=== PATIENT | male | born 1960 | race Caucasian/White ===

== ENCOUNTER 2022-04-14 15:06 | Inpatient (IN) | payer OTHER ==
[~2022-04-14] VITALS: Ht 180.3 cm; Wt 92.1 kg
[2022-04-14] MEDS ORDERED: ACETAMINOPHEN 500 MG TABLET PO ONE (15:30)
[2022-04-14 15:49] LABS: BASOPHILS % (AUTO) 0.2 % (0.0-5.0); EOSINOPHILS % (AUTO) 0.5 % (0.0-8.0); HEMATOCRIT 39.1 % (42-54); LYMPHOCYTES % (AUTO) 3.6 % (21.0-51.0); MEAN CORPUSCULAR HEMOGLOBIN 26.9 pg (27.0-33.0); MEAN CORPUSCULAR VOLUME 81.6 fL (79-99); MONOCYTES % (AUTO) 7.1 % (3.0-13.0); NEUTROPHILS % (AUTO) 87.1 % (40.0-77.0); PLATELET COUNT (AUTO) 402 K/uL (130-400); RED BLOOD CELL COUNT(AUTO) 4.79 MIL/uL (4.50-6.20); RED CELL DISTRIBUTION WIDTH 13.8 % (11.0-15.5); WHITE BLOOD COUNT (AUTO) 22.7 K/uL (4.8-10.8)
[2022-04-14 15:56] LABS: APPEARANCE,URINE Clear (CLEAR); BILIRUBIN,URINE Negative (NEGATIVE); COLOR,URINE Yellow (YELLOW); GLUCOSE, URINE (UA) >=1000 mg/dL (NEGATIVE); KETONES,URINE >=160 mg/dL (NEGATIVE); LEUKOCYTE ESTERASE ,URINE Negative (NEGATIVE); NITRATE,URINE Negative (NEGATIVE); OCCULT BLOOD,URINE Small (NEGATIVE); PROTEIN,URINE POS 2+ mg/dL (NEGATIVE); UROBILINOGEN,URINE 0.2 mg/dL (0.2-1.0)
[2022-04-14] MEDS ORDERED: ONDANSETRON 4MG INJ IVP ONE (16:00)
[2022-04-14] MEDS ORDERED: MORPHINE 4 MG SYG IVP ONE (16:00)
[2022-04-14] MEDS ORDERED: ZOSYN 3.375GM +NS 50ML IV SCH (16:00)
[2022-04-14 16:10] LABS: ALBUMIN 2.5 g/dL (3.5-5.0); BILIRUBIN,TOTAL 0.6 mg/dL (0.2-1.0); CREATININE 1.2 mg/dL (0.5-1.5); POTASSIUM 4.9 mmol/L (3.5-5.1); TOTAL PROTEIN, SERUM 8.3 g/dL (6.0-8.3)
[2022-04-14] MEDS ORDERED: 0.9%NACL 1000ML 1,000 ML IV ONE ×2 (16:30→18:00)
[2022-04-14 16:48] LABS: ABG BASE EXCESS -5.4 mmol/L (-2.0-3.0); ABG HCO3 18.3 mmol/L (21.0-28.0); ABG OXYGEN SATURATION 94.4 % (95.0-99.0); ABG PCO2 31 mmHg (35-48)
[2022-04-14 16:55] LABS: BACTERIA,URINE None Seen /HPF (None Seen); RBC,URINE None Seen /HPF (0-1); SQUAMOUS EPITHELIAL CELL,UR None Seen /HPF (0-2); WBC,URINE 0-1 /HPF (0-1)
[2022-04-14] MEDS ORDERED: CLINDAMYCIN IVPB 900MG/50ML 50 ML IV SCH (17:30)
[2022-04-14] MEDS: METOPROLOL TARTRATE 25 MG TAB PO SCH ×2 (18:00→21:00)
[2022-04-14] MEDS ORDERED: VANCOMYCIN PROTOCOL PER PHARMACY IV PRN (18:00)
[2022-04-14] MEDS ORDERED: ACETAMINOPHEN 325 MG TAB PO PRN (18:00)
[2022-04-14] MEDS ORDERED: LACTULOSE 20 GM/30 ML UDCUP PO PRN (18:00)
[2022-04-14] MEDS ORDERED: ONDANSETRON 4MG INJ IV PRN (18:00)
[2022-04-14] MEDS ORDERED: INSULIN HUMULIN R 100 UNIT/ML 3ML IV ONE (18:00)
[2022-04-14 18:26] LABS: RETICULOCYTE % (AUTO) 1.12 % (0.42-2.23)
[2022-04-14] MEDS ORDERED: LABETALOL 20MG VIAL IV PRN (18:30)
[2022-04-14] MEDS: BUDESONIDE 0.5 MG/2 ML INH IH SCH (18:37)
[2022-04-14] MEDS: IPRATROPIUM/ALBUTEROL SULFATE 3 ML SOLUTION IH SCH ×2 (18:37→23:51)
[2022-04-14 18:41] LABS: PROTEIN,URINE RANDOM 123.3 mg/dL (0-11.9)
[2022-04-14 18:43] LABS: HEMOGLOBIN A1C 11.5 % (4.0-6.0)
[2022-04-14] MEDS ORDERED: VANCOMYCIN 2GM/500 ML BAG 500 ML IV ONE (19:00)
[2022-04-14 19:09] LABS: MAGNESIUM 1.7 mg/dL (1.80-2.40); PHOSPHORUS 3.6 mg/dL (2.5-4.9); THYROID STIMULATING HORMONE 1.69 uIU/mL (0.36-3.74)
[2022-04-14] MEDS: 0.9%NACL 1000ML 1,000 ML IV SCH (19:20)
[2022-04-14] MEDS: MEROPENEM 500 MG VIAL IV SCH (19:25)
[2022-04-14] MEDS ORDERED: FENTANYL 2500MCG+NS 250ML 250 ML IV ONE (20:18)
[2022-04-14] MEDS: NIFEDIPINE 10 MG CAP PO SCH (21:00)
[2022-04-14] MEDS: FAMOTIDINE 20MG VIAL IV SCH (22:22)
[2022-04-14] MEDS: INSULIN HUMULIN R 100 UNIT/ML 3ML SQ SCH (22:22)
[2022-04-14] MEDS: INSULIN GLARGINE 100 UNITS/ML 10 ML VIAL SQ SCH (22:23)
[2022-04-15] VITALS (25 sets, daily range): BP systolic 94–140; BP diastolic 53–76
[2022-04-15] MEDS ORDERED: MORPHINE 4 MG SYG IVP ONE (01:30)
[2022-04-15] MEDS: MEROPENEM 500 MG VIAL IV SCH ×2 (01:37→09:27)
[2022-04-15] MEDS: IPRATROPIUM/ALBUTEROL SULFATE 3 ML SOLUTION IH SCH ×3 (01:47→10:27)
[2022-04-15] MEDS: 0.9%NACL 1000ML 1,000 ML IV SCH ×3 (04:00→15:35)
[2022-04-15] MEDS: ACETAMINOPHEN 325 MG TAB PO PRN (04:44)
[2022-04-15] MEDS: VANCOMYCIN 1G/250ML KIT 250 ML IV SCH ×2 (06:04→16:55)
[2022-04-15] MEDS: INSULIN HUMULIN R 100 UNIT/ML 3ML SQ SCH ×5 (06:05→21:55)
[2022-04-15] MEDS: BUDESONIDE 0.5 MG/2 ML INH IH SCH ×2 (06:18→18:06)
[2022-04-15] MEDS: NIFEDIPINE 10 MG CAP PO SCH ×3 (08:47→21:55)
[2022-04-15] MEDS: METOPROLOL TARTRATE 25 MG TAB PO SCH ×2 (08:47→21:55)
[2022-04-15] MEDS: FAMOTIDINE 20MG VIAL IV SCH ×2 (08:47→21:55)
[2022-04-15] MEDS: ENOXAPARIN SODIUM 40 MG/0.4 ML SYRINGE SQ SCH (08:48)
[2022-04-15] MEDS ORDERED: INSULIN GLARGINE 100 UNITS/ML 10 ML VIAL SQ SCH (09:00)
[2022-04-15] MEDS: HYDROMORPHONE 0.5 MG SYG (0.5MG/0.5ML) IVP PRN ×3 (09:27→21:00)
[2022-04-15 09:30] LABS: BASOPHILS % (AUTO) 0.3 % (0.0-5.0); EOSINOPHILS % (AUTO) 0.1 % (0.0-8.0); HEMATOCRIT 37.5 % (42-54); LYMPHOCYTES % (AUTO) 3.8 % (21.0-51.0); MEAN CORPUSCULAR HEMOGLOBIN 27.5 pg (27.0-33.0); MEAN CORPUSCULAR HGB CONC 33.9 g/dL (32.0-36.0); MEAN CORPUSCULAR VOLUME 81.3 fL (79-99); MONOCYTES % (AUTO) 5.8 % (3.0-13.0); NEUTROPHILS % (AUTO) 89.2 % (40.0-77.0); PLATELET COUNT (AUTO) 348 K/uL (130-400); RED BLOOD CELL COUNT(AUTO) 4.61 MIL/uL (4.50-6.20); WHITE BLOOD COUNT (AUTO) 19.7 K/uL (4.8-10.8)
[2022-04-15 09:45] LABS: CARBON DIOXIDE 25 mmol/L (21-32); CHLORIDE 94 mmol/L (101-111); CREATININE 1.1 mg/dL (0.5-1.5); GLOMERULAR FILTR. RATE CALC 72 mL/min (>60); GLUCOSE,RANDOM 332 mg/dL (70-105); POTASSIUM 3.9 mmol/L (3.5-5.1); SODIUM SERUM 129 mmol/L (136-145); UREA NITROGEN, BLOOD 15 mg/dL (7-18)
[2022-04-15 09:50] LABS: ALANINE AMINOTRANSFERASE 14 U/L (12-78); ASPARTATE AMINOTRANSFERASE 11 U/L (10-37); BILIRUBIN,TOTAL 0.3 mg/dL (0.2-1.0); PHOSPHORUS 2.4 mg/dL (2.5-4.9); TOTAL PROTEIN, SERUM 7.1 g/dL (6.0-8.3)
[2022-04-15 09:55] LABS: B-TYPE NATRIURETIC PEPTIDE 78 pg/mL (0-100)
[2022-04-15 10:01] LABS: AMMONIA < 3 umol/L (11-32)
[2022-04-15 10:41] LABS: ERYTHROCYTE SEDIMENTATION RATE 123 MM/HR (0-20)
[2022-04-15] MEDS: MAGNESIUM 2GM PREMIX 50ML 50 ML IV SCH (11:43)
[2022-04-15] MEDS ORDERED: BUPIVACAINE/PF 0.25% 30ML VIAL IJ ONE (12:46)
[2022-04-15] MEDS ORDERED: LIDOCAINE HCL 1% MDV 50ML VIAL ONE (12:46)
[2022-04-15] MEDS ORDERED: MIDAZOLAM HCL 1 MG/ML 2ML VIAL ONE (13:13)
[2022-04-15] MEDS ORDERED: PROPOFOL 10 MG/ML 20ML VIAL IV ONE (13:13)
[2022-04-15] MEDS ORDERED: FENTANYL CITRATE PF 50 MCG/1 ML 2ML VIAL ONE (13:13)
[2022-04-15] MEDS ORDERED: EPHEDRINE SULFATE 50 MG/ML AMPULE ONE (13:22)
[2022-04-15] MEDS: NEUTRA-PHOS PACKET 1 EACH PO SCH ×2 (14:00→21:57)
[2022-04-15 15:34] LABS: CREATININE 1.1 mg/dL (0.5-1.5); MAGNESIUM 2.3 mg/dL (1.80-2.40); PHOSPHORUS 2.9 mg/dL (2.5-4.9)
[2022-04-15] MEDS: CEFEPIME HCL 1 GM VIAL IVP SCH ×2 (15:34→22:12)
[2022-04-15] MEDS: CLINDAMYCIN IVPB 600MG/50ML 50 ML IV SCH ×2 (15:34→22:12)
[2022-04-15] MEDS: IPRATROPIUM/ALBUTEROL SULFATE 3 ML SOLUTION IH PRN (18:06)
[2022-04-15 21:05] LABS: CREATININE 1.2 mg/dL (0.5-1.5); MAGNESIUM 2.2 mg/dL (1.80-2.40); PHOSPHORUS 2.3 mg/dL (2.5-4.9); POTASSIUM 3.9 mmol/L (3.5-5.1)
[2022-04-15] MEDS: INSULIN GLARGINE 100 UNITS/ML 10 ML VIAL SQ SCH (21:56)
[2022-04-16 00:21] VITALS: BP 108/62
[2022-04-16] MEDS: 0.9%NACL 1000ML 1,000 ML IV SCH ×3 (01:06→20:44)
[2022-04-16 03:21] VITALS: BP 117/65
[2022-04-16] MEDS: INSULIN HUMULIN R 100 UNIT/ML 3ML SQ SCH ×6 (05:00→21:36)
[2022-04-16 05:38] LABS: BASOPHILS % (AUTO) 0.2 % (0.0-5.0); EOSINOPHILS % (AUTO) 0.1 % (0.0-8.0); HEMATOCRIT 31.7 % (42-54); LYMPHOCYTES % (AUTO) 7.7 % (21.0-51.0); MEAN CORPUSCULAR HGB CONC 32.8 g/dL (32.0-36.0); MEAN CORPUSCULAR VOLUME 82.3 fL (79-99); MONOCYTES % (AUTO) 6.6 % (3.0-13.0); NEUTROPHILS % (AUTO) 84.3 % (40.0-77.0); PLATELET COUNT (AUTO) 295 K/uL (130-400); RED BLOOD CELL COUNT(AUTO) 3.85 MIL/uL (4.50-6.20); RED CELL DISTRIBUTION WIDTH 14.3 % (11.0-15.5); WHITE BLOOD COUNT (AUTO) 17.8 K/uL (4.8-10.8)
[2022-04-16 06:14] LABS: CREATININE 1.1 mg/dL (0.5-1.5)
[2022-04-16 06:21] LABS: POTASSIUM 3.6 mmol/L (3.5-5.1)
[2022-04-16] MEDS ORDERED: 0.9% NACL 250ML 250 ML ONE (06:25)
[2022-04-16 06:41] LABS: ERYTHROCYTE SEDIMENTATION RATE 145 MM/HR (0-20)
[2022-04-16] MEDS: VANCOMYCIN 1G/250ML KIT 250 ML IV SCH ×2 (06:45→17:09)
[2022-04-16] MEDS: CEFEPIME HCL 1 GM VIAL IVP SCH ×3 (06:45→20:43)
[2022-04-16] MEDS: CLINDAMYCIN IVPB 600MG/50ML 50 ML IV SCH ×3 (06:45→20:43)
[2022-04-16] MEDS: BUDESONIDE 0.5 MG/2 ML INH IH SCH ×2 (06:47→18:06)
[2022-04-16] MEDS: IPRATROPIUM/ALBUTEROL SULFATE 3 ML SOLUTION IH PRN ×2 (06:47→18:06)
[2022-04-16 07:00] VITALS: BP 107/62
[2022-04-16] MEDS: METOPROLOL TARTRATE 25 MG TAB PO SCH ×2 (08:34→20:44)
[2022-04-16] MEDS: NIFEDIPINE ER 30 MG TAB PO SCH (08:34)
[2022-04-16] MEDS: ASPIRIN 81MG CHEW TAB PO SCH (08:34)
[2022-04-16] MEDS: FAMOTIDINE 20MG VIAL IV SCH ×2 (08:34→20:44)
[2022-04-16] MEDS: ENOXAPARIN SODIUM 40 MG/0.4 ML SYRINGE SQ SCH (08:35)
[2022-04-16] MEDS: CLOPIDOGREL 75MG TAB PO SCH (08:35)
[2022-04-16] MEDS: NEUTRA-PHOS PACKET 1 EACH PO SCH (08:36)
[2022-04-16 10:58] LABS: CREATININE 1.1 mg/dL (0.5-1.5); MAGNESIUM 2.2 mg/dL (1.80-2.40); PHOSPHORUS 2.8 mg/dL (2.5-4.9); POTASSIUM 3.7 mmol/L (3.5-5.1)
[2022-04-16 11:00] VITALS: BP 98/61
[2022-04-16] MEDS: HYDROMORPHONE 0.5 MG SYG (0.5MG/0.5ML) IVP PRN (14:00)
[2022-04-16 14:20] LABS: CREATININE 1.1 mg/dL (0.5-1.5); MAGNESIUM 2.2 mg/dL (1.80-2.40); PHOSPHORUS 2.8 mg/dL (2.5-4.9); POTASSIUM 3.9 mmol/L (3.5-5.1)
[2022-04-16 16:00] VITALS: BP 120/65
[2022-04-16 19:24] VITALS: BP 125/73
[2022-04-16] MEDS: INSULIN GLARGINE 100 UNITS/ML 10 ML VIAL SQ SCH (21:36)
[2022-04-16 21:48] LABS: CREATININE 1.1 mg/dL (0.5-1.5); MAGNESIUM 1.9 mg/dL (1.80-2.40); PHOSPHORUS 2.2 mg/dL (2.5-4.9); POTASSIUM 3.7 mmol/L (3.5-5.1)
[2022-04-17] VITALS (7 sets, daily range): BP systolic 92–135; BP diastolic 60–71
[2022-04-17] MEDS: IPRATROPIUM/ALBUTEROL SULFATE 3 ML SOLUTION IH PRN ×2 (00:37→06:44)
[2022-04-17] MEDS: ACETAMINOPHEN 325 MG TAB PO PRN ×2 (00:39→20:58)
[2022-04-17 04:19] LABS: BASOPHILS % (AUTO) 0.2 % (0.0-5.0); EOSINOPHILS % (AUTO) 0.1 % (0.0-8.0); HEMATOCRIT 30.4 % (42-54); LYMPHOCYTES % (AUTO) 8.3 % (21.0-51.0); MEAN CORPUSCULAR HEMOGLOBIN 27.1 pg (27.0-33.0); MEAN CORPUSCULAR HGB CONC 33.9 g/dL (32.0-36.0); MONOCYTES % (AUTO) 5.6 % (3.0-13.0); NEUTROPHILS % (AUTO) 84.9 % (40.0-77.0); PLATELET COUNT (AUTO) 315 K/uL (130-400); RED CELL DISTRIBUTION WIDTH 14.6 % (11.0-15.5); WHITE BLOOD COUNT (AUTO) 16.1 K/uL (4.8-10.8)
[2022-04-17 04:25] LABS: CREATININE 1.1 mg/dL (0.5-1.5); POTASSIUM 3.4 mmol/L (3.5-5.1)
[2022-04-17] MEDS: INSULIN HUMULIN R 100 UNIT/ML 3ML SQ SCH ×4 (05:21→21:19)
[2022-04-17] MEDS: 0.9%NACL 1000ML 1,000 ML IV SCH ×2 (05:21→17:39)
[2022-04-17] MEDS: VANCOMYCIN 1G/250ML KIT 250 ML IV SCH ×2 (05:33→17:36)
[2022-04-17] MEDS: CLINDAMYCIN IVPB 600MG/50ML 50 ML IV SCH ×3 (05:33→21:01)
[2022-04-17] MEDS: CEFEPIME HCL 1 GM VIAL IVP SCH ×3 (05:33→21:01)
[2022-04-17] MEDS: BUDESONIDE 0.5 MG/2 ML INH IH SCH ×2 (06:37→19:40)
[2022-04-17] MEDS ORDERED: POTASSIUM CHLORIDE 20MEQ/100ML 100 ML IV PRN (07:30)
[2022-04-17] MEDS ORDERED: LIDOCAINE HCL-MPF 1% 2ML VIAL IV PRN (07:30)
[2022-04-17] MEDS: NIFEDIPINE ER 30 MG TAB PO SCH (09:06)
[2022-04-17] MEDS: CLOPIDOGREL 75MG TAB PO SCH (09:06)
[2022-04-17] MEDS: FAMOTIDINE 20MG VIAL IV SCH ×2 (09:07→20:56)
[2022-04-17] MEDS: ASPIRIN 81MG CHEW TAB PO SCH (09:07)
[2022-04-17] MEDS: METOPROLOL TARTRATE 25 MG TAB PO SCH ×2 (09:07→20:57)
[2022-04-17] MEDS: ENOXAPARIN SODIUM 40 MG/0.4 ML SYRINGE SQ SCH (09:07)
[2022-04-17] MEDS: POTASSIUM CHLORIDE 10% ELIXIR 20 MEQ/15 ML UDCUP PO PRN ×2 (09:09→12:48)
[2022-04-17] MEDS: HYDROMORPHONE 0.5 MG SYG (0.5MG/0.5ML) IVP PRN ×3 (12:49→21:02)
[2022-04-17] MEDS ORDERED: GADOTERATE MEGLUMINE 10 MMOL/20 ML VIAL IV ONE (13:39)
[2022-04-17] MEDS ORDERED: 0.9% NACL 250ML 250 ML ONE (17:34)
[2022-04-17] MEDS: INSULIN GLARGINE 100 UNITS/ML 10 ML VIAL SQ SCH (21:18)
[2022-04-18] MEDS: 0.9%NACL 1000ML 1,000 ML IV SCH ×2 (02:13→13:06)
[2022-04-18 04:00] VITALS: BP 111/71
[2022-04-18] MEDS: HYDROMORPHONE 0.5 MG SYG (0.5MG/0.5ML) IVP PRN ×4 (04:21→20:58)
[2022-04-18 04:40] LABS: BASOPHILS % (AUTO) 0.2 % (0.0-5.0); EOSINOPHILS % (AUTO) 0.4 % (0.0-8.0); HEMATOCRIT 30.4 % (42-54); LYMPHOCYTES % (AUTO) 8.8 % (21.0-51.0); MEAN CORPUSCULAR HEMOGLOBIN 26.7 pg (27.0-33.0); MEAN CORPUSCULAR HGB CONC 32.9 g/dL (32.0-36.0); MEAN CORPUSCULAR VOLUME 81.1 fL (79-99); MONOCYTES % (AUTO) 5.5 % (3.0-13.0); NEUTROPHILS % (AUTO) 83.4 % (40.0-77.0); PLATELET COUNT (AUTO) 321 K/uL (130-400); RED BLOOD CELL COUNT(AUTO) 3.75 MIL/uL (4.50-6.20); RED CELL DISTRIBUTION WIDTH 14.6 % (11.0-15.5); WHITE BLOOD COUNT (AUTO) 16.5 K/uL (4.8-10.8)
[2022-04-18 04:59] LABS: CREATININE 0.9 mg/dL (0.5-1.5); POTASSIUM 3.4 mmol/L (3.5-5.1)
[2022-04-18] MEDS: VANCOMYCIN 1G/250ML KIT 250 ML IV SCH ×2 (05:23→17:12)
[2022-04-18] MEDS: CEFEPIME HCL 1 GM VIAL IVP SCH ×3 (05:23→22:50)
[2022-04-18] MEDS: CLINDAMYCIN IVPB 600MG/50ML 50 ML IV SCH ×3 (05:23→22:50)
[2022-04-18] MEDS: INSULIN HUMULIN R 100 UNIT/ML 3ML SQ SCH ×4 (06:48→21:02)
[2022-04-18] MEDS: BUDESONIDE 0.5 MG/2 ML INH IH SCH ×2 (06:51→18:50)
[2022-04-18 07:45] VITALS: BP 122/65
[2022-04-18] MEDS: ASPIRIN 81MG CHEW TAB PO SCH (09:12)
[2022-04-18] MEDS: CLOPIDOGREL 75MG TAB PO SCH (09:12)
[2022-04-18] MEDS: METOPROLOL TARTRATE 25 MG TAB PO SCH ×2 (09:12→21:00)
[2022-04-18] MEDS: NIFEDIPINE ER 30 MG TAB PO SCH (09:13)
[2022-04-18] MEDS: ENOXAPARIN SODIUM 40 MG/0.4 ML SYRINGE SQ SCH (09:13)
[2022-04-18] MEDS: FAMOTIDINE 20MG TAB PO SCH ×2 (09:42→21:00)
[2022-04-18 11:40] VITALS: BP 115/67
[2022-04-18] MEDS ORDERED: GADOTERATE MEGLUMINE 10 MMOL/20 ML VIAL IV ONE (13:54)
[2022-04-18 15:40] VITALS: BP 104/54
[2022-04-18 19:00] VITALS: BP 135/69
[2022-04-18] MEDS: INSULIN GLARGINE 100 UNITS/ML 10 ML VIAL SQ SCH (21:00)
[2022-04-19] VITALS (7 sets, daily range): BP systolic 116–141; BP diastolic 60–79
[2022-04-19] MEDS: HYDROMORPHONE 0.5 MG SYG (0.5MG/0.5ML) IVP PRN ×5 (00:44→21:41)
[2022-04-19] MEDS: VANCOMYCIN 1G/250ML KIT 250 ML IV SCH (05:06)
[2022-04-19] MEDS: BUDESONIDE 0.5 MG/2 ML INH IH SCH ×2 (06:11→18:41)
[2022-04-19] MEDS: INSULIN HUMULIN R 100 UNIT/ML 3ML SQ SCH ×4 (06:38→21:47)
[2022-04-19] MEDS: CLINDAMYCIN IVPB 600MG/50ML 50 ML IV SCH ×3 (06:39→21:50)
[2022-04-19] MEDS: CEFEPIME HCL 1 GM VIAL IVP SCH ×3 (06:39→21:50)
[2022-04-19] MEDS: METOPROLOL TARTRATE 25 MG TAB PO SCH ×2 (09:19→21:40)
[2022-04-19] MEDS: ENOXAPARIN SODIUM 40 MG/0.4 ML SYRINGE SQ SCH (09:19)
[2022-04-19] MEDS: CLOPIDOGREL 75MG TAB PO SCH (09:20)
[2022-04-19] MEDS: LISINOPRIL 20 MG TABLET PO SCH (09:20)
[2022-04-19] MEDS: FAMOTIDINE 20MG TAB PO SCH ×2 (09:20→21:39)
[2022-04-19] MEDS: ASPIRIN 81MG CHEW TAB PO SCH (09:20)
[2022-04-19] MEDS: INSULIN GLARGINE 100 UNITS/ML 10 ML VIAL SQ SCH (21:48)
[2022-04-20] MEDS: VANCOMYCIN 1G/250ML KIT 250 ML IV SCH ×3 (00:12→17:59)
[2022-04-20 05:00] VITALS: BP 118/62
[2022-04-20] MEDS: CLINDAMYCIN IVPB 600MG/50ML 50 ML IV SCH ×2 (06:09→14:17)
[2022-04-20] MEDS: CEFEPIME HCL 1 GM VIAL IVP SCH ×2 (06:09→14:16)
[2022-04-20] MEDS: HYDROMORPHONE 0.5 MG SYG (0.5MG/0.5ML) IVP PRN ×2 (06:10→18:00)
[2022-04-20] MEDS: BUDESONIDE 0.5 MG/2 ML INH IH SCH ×2 (06:32→18:21)
[2022-04-20] MEDS: INSULIN HUMULIN R 100 UNIT/ML 3ML SQ SCH ×4 (06:57→21:53)
[2022-04-20 08:30] VITALS: BP 137/72
[2022-04-20] MEDS ORDERED: 0.9% NACL 250ML 250 ML ONE ×2 (08:46→17:55)
[2022-04-20] MEDS: ENOXAPARIN SODIUM 40 MG/0.4 ML SYRINGE SQ SCH (08:48)
[2022-04-20] MEDS: ASPIRIN 81MG CHEW TAB PO SCH (08:48)
[2022-04-20] MEDS: LISINOPRIL 20 MG TABLET PO SCH (08:49)
[2022-04-20] MEDS: CLOPIDOGREL 75MG TAB PO SCH (08:49)
[2022-04-20] MEDS: METOPROLOL TARTRATE 25 MG TAB PO SCH ×2 (08:49→21:39)
[2022-04-20] MEDS: FAMOTIDINE 20MG TAB PO SCH ×2 (08:50→21:39)
[2022-04-20] MEDS: KCL 20 MEQ ERTAB PO PRN ×2 (08:51→21:39)
[2022-04-20 12:00] VITALS: BP 138/73
[2022-04-20 14:29] LABS: HEMATOCRIT 31.3 % (42-54); MEAN CORPUSCULAR HEMOGLOBIN 26.7 pg (27.0-33.0); MEAN CORPUSCULAR HGB CONC 33.2 g/dL (32.0-36.0); MEAN CORPUSCULAR VOLUME 80.5 fL (79-99); RED BLOOD CELL COUNT(AUTO) 3.89 MIL/uL (4.50-6.20); RED CELL DISTRIBUTION WIDTH 14.4 % (11.0-15.5)
[2022-04-20 14:42] LABS: CREATININE 0.9 mg/dL (0.5-1.5); POTASSIUM 3.3 mmol/L (3.5-5.1)
[2022-04-20] MEDS: 0.9%NACL 1000ML 1,000 ML IV SCH (15:06)
[2022-04-20 16:00] VITALS: BP 144/74
[2022-04-20] MEDS: INSULIN GLARGINE 100 UNITS/ML 10 ML VIAL SQ SCH (21:55)
[2022-04-20 23:22] VITALS: BP 141/76
[2022-04-21] MEDS: MAGNESIUM 2GM PREMIX 50ML 50 ML IV SCH (00:50)
[2022-04-21] MEDS: CLINDAMYCIN IVPB 600MG/50ML 50 ML IV SCH ×2 (00:50→05:22)
[2022-04-21] MEDS: KCL 20 MEQ ERTAB PO PRN (00:51)
[2022-04-21] MEDS: CEFEPIME HCL 1 GM VIAL IVP SCH ×2 (00:51→05:22)
[2022-04-21] MEDS: 0.9%NACL 1000ML 1,000 ML IV SCH ×2 (02:27→11:06)
[2022-04-21] MEDS: HYDROMORPHONE 0.5 MG SYG (0.5MG/0.5ML) IVP PRN ×2 (02:45→08:31)
[2022-04-21 03:58] VITALS: BP 139/71
[2022-04-21 04:46] LABS: HEMATOCRIT 34.6 % (42-54); MEAN CORPUSCULAR HEMOGLOBIN 26.9 pg (27.0-33.0); MEAN CORPUSCULAR HGB CONC 33.5 g/dL (32.0-36.0); MEAN CORPUSCULAR VOLUME 80.3 fL (79-99); RED BLOOD CELL COUNT(AUTO) 4.31 MIL/uL (4.50-6.20); RED CELL DISTRIBUTION WIDTH 14.3 % (11.0-15.5); WHITE BLOOD COUNT (AUTO) 11.8 K/uL (4.8-10.8)
[2022-04-21 05:11] LABS: ALBUMIN 1.6 g/dL (3.5-5.0); CREATININE 0.9 mg/dL (0.5-1.5); POTASSIUM 3.6 mmol/L (3.5-5.1)
[2022-04-21] MEDS: VANCOMYCIN 1G/250ML KIT 250 ML IV SCH (06:00)
[2022-04-21] MEDS: INSULIN HUMULIN R 100 UNIT/ML 3ML SQ SCH (06:40)
[2022-04-21] MEDS: BUDESONIDE 0.5 MG/2 ML INH IH SCH (06:58)
[2022-04-21] MEDS: METOPROLOL TARTRATE 25 MG TAB PO SCH (08:29)
[2022-04-21] MEDS: FAMOTIDINE 20MG TAB PO SCH (09:00)
[2022-04-21] MEDS: LISINOPRIL 20 MG TABLET PO SCH (09:00)
[2022-04-21] MEDS: ASPIRIN 81MG CHEW TAB PO SCH (09:00)
[2022-04-21] MEDS: ENOXAPARIN SODIUM 40 MG/0.4 ML SYRINGE SQ SCH (09:00)
[2022-04-21] MEDS: CLOPIDOGREL 75MG TAB PO SCH (09:00)
[2022-04-21 12:34] VITALS: BP 123/62
== END 2022-04-21 13:22 | disposition left against medical advice (07) | DRG 853 ==
LOC: EDH 15:06 → EDHIP 17:51 → 2DH 22:41
PROVIDERS: ADMIT Internal Medicine; ATTEND Internal Medicine
PROC: 0J9Q0ZZ Drainage of Right Foot Subcutaneous Tissue and Fascia, Open Approach (ICD-10-PCS; 2022-04-15)
PROC: 0JBQ0ZZ Excision of Right Foot Subcutaneous Tissue and Fascia, Open Approach (ICD-10-PCS; principal; 2022-04-15 13:09)
DX: A41.9 Sepsis, unspecified organism (principal); E11.10 Type 2 diabetes mellitus with ketoacidosis without coma; A48.0 Gas gangrene; E43 Unspecified severe protein-calorie malnutrition; E87.1 Hypo-osmolality and hyponatremia; L02.611 Cutaneous abscess of right foot; M86.8X7 Other osteomyelitis, ankle and foot; E11.52 Type 2 diabetes mellitus with diabetic peripheral angiopathy with gangrene; R65.20 Severe sepsis without septic shock; E11.621 Type 2 diabetes mellitus with foot ulcer; E86.1 Hypovolemia; F17.200 Nicotine dependence, unspecified, uncomplicated; I10 Essential (primary) hypertension; Z20.822 Contact with and (suspected) exposure to COVID-19; E78.5 Hyperlipidemia, unspecified; Z89.512 Acquired absence of left leg below knee; L97.519 Non-pressure chronic ulcer of other part of right foot with unspecified severity; E66.9 Obesity, unspecified; Z83.3 Family history of diabetes mellitus; Z91.19 Patient's noncompliance with other medical treatment and regimen; B96.89 Other specified bacterial agents as the cause of diseases classified elsewhere; G89.29 Other chronic pain; E87.6 Hypokalemia; E11.69 Type 2 diabetes mellitus with other specified complication; Z53.29 Procedure and treatment not carried out because of patient's decision for other reasons; Z68.28 Body mass index [BMI] 28.0-28.9, adult; F12.90 Cannabis use, unspecified, uncomplicated
CPT/HCPCS: 36415; 36600; 73630; 73700; 73720; 80048; 80053; 80061; 80202; 81001; 82010; 82040; 82140; 82550; 82570; 82607; 82728; 82803; 82948; 83036; 83540; 83550; 83605; 83735; 83880; 83930; 83935; 84100; 84145; 84156; 84300; 84443; 84484; 85025; 85027; 85045; 85651; 86140; 87040; 87070; 87076; 87077; 87088; 87186; 87205; 87635; 93005; 93926; 94640; 94664; 99291; G0378; J0692; J1170; J1650; J1815; J2185; J2250; J2270; J2405; J2543; J2704; J3010; J3370; J3475; J3480; J3490; J7030; J7050